=== PATIENT | male | born 1985 | race Caucasian/White ===

== ENCOUNTER 2019-02-10 02:56 | Inpatient (IN) | payer BC, OTHER ==
[2019-02-10] MEDS ORDERED: SODIUM CHLORIDE 1,000 ML IV ONE (03:11)
[2019-02-10] MEDS ORDERED: ONDANSETRON 4 MG/2 ML VIAL IVPB ONE (03:11)
--- NOTE | 2019-02-10 03:11 | PDOC ---
History of Present Illness - General Chief Complaint: Nausea/Vomiting Stated Complaint: N/V/ABD PAIN Time Seen by Provider: 02/10/19 03:10 History Source: Patient Exam Limitations: No Limitations - History of Present Illness Initial Comments: 02/10/19 03:15 This is a 33-year-old male long history of Crohn's disease was adequate affect treatment for Crohn's disease. Patient comes in complaining of nausea vomiting and abdominal pain for the last 2 days. Patient states she is unable to tolerate any liquids or solids. Patient denies any fevers or chills. Allergies: as per nursing notes Past Medical History: Crohn's disease Social history: Lives with family. No smoking. No alcohol. No illicit drugs. Surgical history: Abdominal surgery General: No fevers or chills, no weakness, no weight loss HEENT: No change in vision. No sore throat,. No ear pain CardioVascular: no chest discomfort. No shortness of breath Respiratory:No cough, or wheezing. Gastrointestinal: + nausea, +vomiting, no diarrhea or constipation, No rectal bleeding Genitourinary: No dysuria, hematuria, or frequency Musculoskeletal: No joint or muscle pain or swelling Neurologic: No headache, vertigo, dizziness or loss of consciousness Psychiatric: nor depression Skin: No rashes or easy bruising Endocrine: no increased thirst or abnormal weight change Allergic: no skin or latex allergy All other systems reviewed and normal Exam: General: Well-nourished well-developed individual, no acute distress HEENT: Throat: Normal, tonsils normal, no erythema or exudate Neck: Supple, no meningeal signs, no lymphadenopathy Eyes::Pupils equal reactive and round, extraocular motion intact Chest: Nontender to palpation Cardiac: S1-S2 normal, regular rate and rhythm, no murmurs rubs or gallops Respiratory: Lungs clear to auscultation bilateral Abdomen: Soft, slightly distended, decreased bowel sounds but present, he showed the chest to the right of the umbilicus, no guarding or rebound. Extremities: Warm, dry, no cyanosis, clubbing, or edema Skin: No rashes Neuro: Alert and oriented x3, CN II - XII intact, nonfocal exam with normal strength, normal sensation, normal reflexes, normal gait, Psych: Normal mood and affect Assessment and plan: This is a 33-year-old male with history of Crohn's who comes in complaining of 2 days nausea and vomiting. Workup was initiated including CBC, comp, lipase CAT scan was ordered to rule out obstruction Patient given IV fluids, pain meds and antiemetics. 02/10/19 06:57 Patient feels much better after fluids and antiemetics. As a normal white count and the rest of his labs are unremarkable. However given this history he is currently getting a CAT scan.. Transferred to Dr. tuyet nguyen at 7 AM. Case discussed in detail with oncoming Emergency Physician including history, physical exam and ancillary studies. Oncoming Emergency Physician has assumed care for the patient and will complete the evaluation and treatment. Patient is aware of the plan. Pt is clinically unchanged and stable. 02/10/19 06:58 Past History - Past Medical History Allergies/Adverse Reactions: Allergies Allergy/AdvReac Type Severity Reaction Status Date / Time No Known Allergies Allergy Unverified 02/10/19 02:57 Home Medications: Ambulatory Orders Infliximab [Remicade 100MG Vial] 100 mg IV WEEKLY 02/10/19 COPD: No GI Disorders: Yes (CROHNS) - Surgical History Abdominal Surgery: Yes (RESECTION) - Suicide/Smoking/Psychosocial Hx Smoking History: Never smoked *Physical Exam - Vital Signs Last Vital Signs Temp Pulse Resp BP Pulse Ox 98.3 F 66 18 140/82 100 02/10/19 03:00 02/10/19 03:00 02/10/19 03:00 02/10/19 03:00 02/10/19 03:00 ED Treatment Course - LABORATORY CBC & Chemistry Diagram: 02/10/19 03:15 02/10/19 03:15 *DC/Admit/Observation/Transfer Diagnosis at time of Disposition: Abdominal pain - Discharge Dispostion Condition at time of disposition: Stable - Referrals - Patient Instructions - Post Discharge Activity
[2019-02-10] MEDS ORDERED: morphine CARPU-JECT 4 MG/1 ML DISP.SYRIN IVPUSH ONE (03:15)
[2019-02-10] MEDS ORDERED: ONDANSETRON 4 MG/2 ML VIAL ONE ×2 (03:15→08:33)
[2019-02-10] MEDS ORDERED: morphine SULFATE 4 MG/ML VIAL ONE ×2 (03:18→08:32)
[2019-02-10 04:47] LABS: BASO % 0.3 % (0-2.0); EOS % 0.2 % (0-4.5); HEMATOCRIT 49.3 % (35.4-49); HEMOGLOBIN 16.3 GM/dL (11.7-16.9); LYMPH % 9.1 % (8-40); MCH 29.2 pg (25.7-33.7); MCHC 33.2 g/dl (32.0-35.9); MEAN CELL VOLUME 88.1 fl (80-96); MEAN PLT VOLUME 8.9 fl (7.5-11.1); MONO % 6.9 % (3.8-10.2); NEUT % 83.5 % (42.8-82.8); PLATELET COUNT 290 K/MM3 (134-434); RBC 5.59 M/mm3 (4.00-5.60); RDW 12.9 % (11.9-15.9); WHITE BLOOD COUNT 8.9 K/mm3 (4.0-10.0)
[2019-02-10 05:12] LABS: BILIRUBIN,TOTAL 0.9 mg/dL (0.2-1); BLOOD UREA NITROGEN 15.6 mg/dL (7-18); CALCIUM 9.4 mg/dL (8.5-10.1); CREATININE 1.3 mg/dL (0.55-1.3); POTASSIUM 4.3 mmol/L (3.5-5.1); TOT PROT 7.5 g/dl (6.4-8.2)
--- NOTE | 2019-02-10 07:30 | PDOC ---
*Physical Exam - Vital Signs Last Vital Signs Temp Pulse Resp BP Pulse Ox 98.1 F 55 L 16 152/67 100 02/10/19 06:57 02/10/19 06:57 02/10/19 06:57 02/10/19 06:57 02/10/19 06:57 ED Treatment Course - LABORATORY CBC & Chemistry Diagram: 02/10/19 03:15 02/10/19 03:15 - ADDITIONAL ORDERS Additional order review: Laboratory Results 02/10/19 03:15 Sodium 137 Potassium 4.3 Chloride 100 Carbon Dioxide 29 Anion Gap 8 BUN 15.6 Creatinine 1.3 Est GFR (CKD-EPI)AfAm 83.68 Est GFR (CKD-EPI)NonAf 72.20 Random Glucose 100 Calcium 9.4 Total Bilirubin 0.9 AST 21 ALT 28 Alkaline Phosphatase 55 Total Protein 7.5 Albumin 4.0 Lipase 146 02/10/19 03:15 RBC 5.59 MCV 88.1 MCHC 33.2 RDW 12.9 MPV 8.9 D Neutrophils % 83.5 H D Lymphocytes % 9.1 D Monocytes % 6.9 Eosinophils % 0.2 D Basophils % 0.3 - RADIOLOGY Radiology Studies Ordered: Category Date Time Status ABDOMEN & PELVIS CT WITH CONTR [CT] Stat CT Scan 02/10/19 03:11 Taken - Medications Given in the ED: ED Medications Discontinued Medications Generic Name Dose Route Start Last Admin Trade Name Freq PRN Reason Stop Dose Admin Sodium Chloride 1,000 mls @ 1,000 mls/hr 02/10/19 03:11 02/10/19 03:17 Normal Saline - IV 02/10/19 04:10 1,000 mls/hr .Q1H ONE Administration Morphine Sulfate 4 mg 02/10/19 03:15 02/10/19 03:21 Morphine Injection - IVPUSH 02/10/19 03:16 4 mg ONCE ONE Administration Ondansetron HCl 8 mg 02/10/19 03:11 02/10/19 03:17 Zofran Injection IVPB 02/10/19 03:12 8 mg ONCE ONE Administration *DC/Admit/Observation/Transfer Diagnosis at time of Disposition: SBO (small bowel obstruction) Abdominal pain Qualifiers: Abdominal location: generalized Qualified Code(s): R10.84 - Generalized abdominal pain Intestinal obstruction Qualifiers: Intestinal obstruction type: unspecified ileus Qualified Code(s): K56.7 - Ileus , unspecified - Discharge Dispostion Condition at time of disposition: Stable Decision to Admit order: Yes - Referrals - Patient Instructions - Post Discharge Activity
--- NOTE | 2019-02-10 08:03 | PDOC ---
History of Present Illness - General Chief Complaint: Nausea/Vomiting Stated Complaint: N/V/ABD PAIN Time Seen by Provider: 02/10/19 03:10 Past History - Past Medical History Allergies/Adverse Reactions: Allergies Allergy/AdvReac Type Severity Reaction Status Date / Time No Known Allergies Allergy Unverified 02/10/19 02:57 Home Medications: Ambulatory Orders Infliximab [Remicade 100MG Vial] 100 mg IV WEEKLY 02/10/19 COPD: No GI Disorders: Yes (CROHNS) - Surgical History Abdominal Surgery: Yes (RESECTION) - Suicide/Smoking/Psychosocial Hx Smoking History: Never smoked *Physical Exam - Vital Signs Last Vital Signs Temp Pulse Resp BP Pulse Ox 98.1 F 55 L 16 152/67 100 02/10/19 06:57 02/10/19 06:57 02/10/19 06:57 02/10/19 06:57 02/10/19 06:57 ED Treatment Course - LABORATORY CBC & Chemistry Diagram: 02/10/19 03:15 02/10/19 03:15 - ADDITIONAL ORDERS Additional order review: Laboratory Results 02/10/19 03:15 Sodium 137 Potassium 4.3 Chloride 100 Carbon Dioxide 29 Anion Gap 8 BUN 15.6 Creatinine 1.3 Est GFR (CKD-EPI)AfAm 83.68 Est GFR (CKD-EPI)NonAf 72.20 Random Glucose 100 Calcium 9.4 Total Bilirubin 0.9 AST 21 ALT 28 Alkaline Phosphatase 55 Total Protein 7.5 Albumin 4.0 Lipase 146 02/10/19 03:15 RBC 5.59 MCV 88.1 MCHC 33.2 RDW 12.9 MPV 8.9 D Neutrophils % 83.5 H D Lymphocytes % 9.1 D Monocytes % 6.9 Eosinophils % 0.2 D Basophils % 0.3 - RADIOLOGY Radiology Studies Ordered: Category Date Time Status ABDOMEN & PELVIS CT WITH CONTR [CT] Stat CT Scan 02/10/19 03:11 Taken - Medications Given in the ED: ED Medications Discontinued Medications Generic Name Dose Route Start Last Admin Trade Name Freq PRN Reason Stop Dose Admin Sodium Chloride 1,000 mls @ 1,000 mls/hr 02/10/19 03:11 02/10/19 03:17 Normal Saline - IV 02/10/19 04:10 1,000 mls/hr .Q1H ONE Administration Morphine Sulfate 4 mg 02/10/19 03:15 02/10/19 03:21 Morphine Injection - IVPUSH 02/10/19 03:16 4 mg ONCE ONE Administration Ondansetron HCl 8 mg 02/10/19 03:11 02/10/19 03:17 Zofran Injection IVPB 02/10/19 03:12 8 mg ONCE ONE Administration *DC/Admit/Observation/Transfer Diagnosis at time of Disposition: SBO (small bowel obstruction) Abdominal pain Qualifiers: Abdominal location: generalized Qualified Code(s): R10.84 - Generalized abdominal pain Intestinal obstruction Qualifiers: Intestinal obstruction type: unspecified ileus Qualified Code(s): K56.7 - Ileus , unspecified - Discharge Dispostion Condition at time of disposition: Stable - Referrals - Patient Instructions - Post Discharge Activity
--- NOTE | 2019-02-10 08:15 | PDOC ---
*Physical Exam - Vital Signs Last Vital Signs Temp Pulse Resp BP Pulse Ox 98.1 F 55 L 16 152/67 100 02/10/19 06:57 02/10/19 06:57 02/10/19 06:57 02/10/19 06:57 02/10/19 06:57 - Physical Exam General Appearance: Yes: Nourished, Appropriately Dressed, Moderate Distress HEENT: positive: AYDEE Neck: negative: Tender, Trachea midline, Normal Thyroid, Rigid, Supple, Carotid bruit, Decreased range of motion, Stridor, Lymphadenopathy (R), Lymphadenopathy (L), Rigidity, Tender lateral, Tender midline, Thyromegaly, Other Respiratory/Chest: positive: Lungs Clear, Normal Breath Sounds Cardiovascular: positive: Regular Rhythm Gastrointestinal/Abdominal: positive: Flat, Increased Bowel Sounds, Tenderness ( Right lower quadrant and midepigastrum), Other (midline scar post sb resection) . negative: Guarding, Rebound Male Genitalia: positive: normal genitalia Lymphatic: negative: Adenopathy Musculoskeletal: positive: Normal Inspection Extremity: positive: Normal Capillary Refill, Normal Inspection, Normal Range of Motion Integumentary: positive: Normal Color, Dry Neurologic: positive: Fully Oriented, Alert, Normal Mood/Affect ED Treatment Course - LABORATORY CBC & Chemistry Diagram: 02/10/19 03:15 02/10/19 03:15 - ADDITIONAL ORDERS Additional order review: Laboratory Results 02/10/19 03:15 Sodium 137 Potassium 4.3 Chloride 100 Carbon Dioxide 29 Anion Gap 8 BUN 15.6 Creatinine 1.3 Est GFR (CKD-EPI)AfAm 83.68 Est GFR (CKD-EPI)NonAf 72.20 Random Glucose 100 Calcium 9.4 Total Bilirubin 0.9 AST 21 ALT 28 Alkaline Phosphatase 55 Total Protein 7.5 Albumin 4.0 Lipase 146 02/10/19 03:15 RBC 5.59 MCV 88.1 MCHC 33.2 RDW 12.9 MPV 8.9 D Neutrophils % 83.5 H D Lymphocytes % 9.1 D Monocytes % 6.9 Eosinophils % 0.2 D Basophils % 0.3 - RADIOLOGY Radiograph Interpretation: Received call from Radiologist : SHIVA 02/10/19 08:21 - Medications Given in the ED: ED Medications Discontinued Medications Generic Name Dose Route Start Last Admin Trade Name Freq PRN Reason Stop Dose Admin Sodium Chloride 1,000 mls @ 1,000 mls/hr 02/10/19 03:11 02/10/19 03:17 Normal Saline - IV 02/10/19 04:10 1,000 mls/hr .Q1H ONE Administration Morphine Sulfate 4 mg 02/10/19 03:15 02/10/19 03:21 Morphine Injection - IVPUSH 02/10/19 03:16 4 mg ONCE ONE Administration Ondansetron HCl 8 mg 02/10/19 03:11 02/10/19 03:17 Zofran Injection IVPB 02/10/19 03:12 8 mg ONCE ONE Administration - Consult/PCP Time Called: 08:00 Case discussed with consulting physician: Kenzie Stuart Medical Decision Making - Medical Decision Making Discussed with admitting EQUIPMENT MONITOR PHOTOTYPESETTING, Surgical consult, Dr Montiel to be called 02/10/19 08:23 *DC/Admit/Observation/Transfer Diagnosis at time of Disposition: SBO (small bowel obstruction) Abdominal pain Qualifiers: Abdominal location: generalized Qualified Code(s): R10.84 - Generalized abdominal pain Intestinal obstruction Qualifiers: Intestinal obstruction type: unspecified ileus Qualified Code(s): K56.7 - Ileus , unspecified - Discharge Dispostion Condition at time of disposition: Stable Decision to Admit order: Yes - Referrals - Patient Instructions - Post Discharge Activity
[2019-02-10] MEDS ORDERED: ONDANSETRON 4 MG/2 ML VIAL IVPUSH ONE (08:29)
[2019-02-10] MEDS ORDERED: morphine CARPU-JECT 2 MG/1 ML DISP.SYRIN IVPUSH ONE (08:29)
[2019-02-10] MEDS ORDERED: SODIUM CHLORIDE 1,000 ML IV SCH (08:30)
--- NOTE | 2019-02-10 10:17 | HP ---
CHIEF COMPLAINT: Abdominal pain GI: Dr. Gualberto Mohr, [facility] [phone] GI surgeon: Dr. Mohan, [facility] HISTORY OF PRESENT ILLNESS: 33 year-old male with a PMH significant for Crohn's Disease (diagnosed age 26) s /p small bowel resection x 5 years ago. Patient presented to the ED for evaluation of abdominal pain, nausea and vomiting. Two days ago patient developed profound fatigue and vomiting. For the past 48 hours he has vomited repeatedly and has been unable to tolerate PO. He has pain in the right lower and right mid abdomen. Patient reports he has been symptom free for two years. He saw his GI specialist in December 2018 and was told everything was fine. 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[employer]; baseball instructor Smoking: never Alcohol: beer on weekends Drugs: no Family History: mother and father a&w; 4 step siblings a&w; daughter a&w Allergies No Known Allergies Allergy (Unverified 02/10/19 02:57) HOME MEDICATIONS: Home Medications Medication Instructions Recorded Infliximab [Remicade 100MG Vial] 100 mg IV WEEKLY 02/10/19 REVIEW OF SYSTEMS CONSTITUTIONAL: Absent: fever, chills, diaphoresis, generalized weakness, malaise, loss of appetite, weight change HEENT: Absent: rhinorrhea, nasal congestion, throat pain, throat swelling, difficulty swallowing, mouth swelling, ear pain, eye pain, visual changes CARDIOVASCULAR: Absent: chest pain, syncope, palpitations, irregular heart rate, lightheadedness , peripheral edema RESPIRATORY: Absent: cough, shortness of breath, dyspnea with exertion, orthopnea, wheezing, stridor, hemoptysis GASTROINTESTINAL: +nausea, vomiting, abdominal pain Absent: abdominal pain, abdominal distension, nausea, vomiting, diarrhea, constipation, melena, hematochezia GENITOURINARY: Absent: dysuria, frequency, urgency, hesitancy, hematuria, flank pain, genital pain MUSCULOSKELETAL: Absent: myalgia, arthralgia, joint swelling, back pain, neck pain SKIN: Absent: rash, itching, pallor HEMATOLOGIC/IMMUNOLOGIC: Absent: easy bleeding, easy bruising, lymphadenopathy, frequent infections ENDOCRINE: Absent: unexplained weight gain, unexplained weight loss, heat intolerance, cold intolerance NEUROLOGIC: Absent: headache, focal weakness or paresthesias, dizziness, unsteady gait, seizure, mental status changes, bladder or bowel incontinence PSYCHIATRIC: Absent: anxiety, depression, suicidal or homicidal ideation, hallucinations. PHYSICAL EXAMINATION Vital Signs - 24 hr 02/10/19 02/10/19 02/10/19 03:00 06:57 08:14 Temperature 98.3 F 98.1 F 99.2 F Pulse Rate 66 Pulse Rate [ 55 L 86 Radial] Respiratory 18 16 16 Rate Blood Pressure 140/82 Blood Pressure 152/67 129/76 [Arm] O2 Sat by Pulse 100 100 98 Oximetry (%) GENERAL: Awake, alert, and fully oriented, in no acute distress. LUNGS: Breath sounds equal, clear to auscultation bilaterally. No wheezes, and no crackles. No accessory muscle use. HEART: Regular rate and rhythm, normal S1 and S2 without murmur, rub or gallop. ABDOMEN: Large healed surgical scar; soft; RLQ and RMQ tenderness; hypoactive bowel sounds MUSCULOSKELETAL: Normal range of motion at all joints. No bony deformities or tenderness. No CVA tenderness. UPPER EXTREMITIES: 2+ pulses, warm, well-perfused. No cyanosis. No clubbing. No peripheral edema. LOWER EXTREMITIES: 2+ pulses, warm, well-perfused. No calf tenderness. No peripheral edema. NEUROLOGICAL: Cranial nerves II-XII intact. Normal speech. Normal gait. PSYCHIATRIC: Cooperative. Good eye contact. Appropriate mood and affect. SKIN: Warm, dry, normal turgor, no rashes or lesions noted, normal capillary refill. Laboratory Results - last 24 hr 02/10/19 02/10/19 03:15 03:15 WBC 8.9 RBC 5.59 Hgb 16.3 Hct 49.3 H MCV 88.1 MCH 29.2 MCHC 33.2 RDW 12.9 Plt Count 290 MPV 8.9 D Absolute Neuts (auto) 7.4 Neutrophils % 83.5 H D Lymphocytes % 9.1 D Monocytes % 6.9 Eosinophils % 0.2 D Basophils % 0.3 Nucleated RBC % 0 Sodium 137 Potassium 4.3 Chloride 100 Carbon Dioxide 29 Anion Gap 8 BUN 15.6 Creatinine 1.3 Est GFR (CKD-EPI)AfAm 83.68 Est GFR (CKD-EPI)NonAf 72.20 Random Glucose 100 Calcium 9.4 Total Bilirubin 0.9 AST 21 ALT 28 Alkaline Phosphatase 55 Total Protein 7.5 Albumin 4.0 Lipase 146 ASSESSMENT/PLAN 33 year-old male with a PMH significant for Crohn's Disease (diagnosed age 26) s /p small bowel resection x 5 years ago. Admitted for SBO. SBO --02/10 CTAP: SBO with loops up to 4cm; fecalization; transition at small bowel anastamosis --02/10 FUA: no sign of ileus or obstruction --NPO --IV fluids --surgical consult Crohn's disease --on remicade --call placed to GI Dr. Mohr to discuss management; spoke with EMERGENCY TELECOMMUNICATIONS DISPATCHER Cris Cruz; if patient needs surgery or develops complications the IBD team will accept the patient for transfer; call the [facility], ask for the IBD team and speak to the fellow five piece expansion maker hand DVT prophylaxis: TEDs, oob, ambulation Dispo: continues to require inpatient care. Full code. Visit type - Emergency Visit Emergency Visit: Yes ED Registration Date: 02/10/19 Care time: The patient presented to the Emergency Department on the above date and was hospitalized for further evaluation of their emergent condition. - New Patient This patient is new to me today: Yes Date on this admission: 02/10/19 - Critical Care Critical Care patient: No
[2019-02-10 10:27] VITALS: BMI 27.3
[2019-02-10] MEDS ORDERED: ACETAMINOPHEN 1000 MG/100 ML VIAL (NON FORMULARY) IVPB PRN (10:55)
[2019-02-10] MEDS ORDERED: DEXTROSE 5%-NORMAL SALINE 1,000 ML IV SCH (11:00)
[2019-02-10 12:51] LABS: ACTIVATED PTT 30.1 SECONDS (25.2-36.5)
[2019-02-10 12:55] LABS: INR 1.45 (0.82-1.09); PROTHROMBIN TIME (PATIENT) 16.1 SEC (10.2-13.0)
--- NOTE | 2019-02-10 23:44 | CONSULT ---
- Consultation REQUESTING PROVIDER: Narciso MINERAL INDUSTRY TEACHER CONSULT REQUEST: We have been asked to surgically evaluate this patient for nausea/vomiting/abdominal pain PCP:Kenzie Stuart HISTORY OF PRESENT ILLNESS:33 y/o W/male w/known Crohns disease presented w/ above complaints which started 24 hours earlier; he has had this before and it usually resolves on its own; it was worse this time and he came to the ED for evaluation; after # hours in the ED and a dx. w/u and tx. he was feeling better and passing large amounts of flatus; he has a h/o SBR for Crohns disease at [facility] [place] [facility] # years ago; he has NOC today. PMHx: Crohns PSHx: as above Home Medications Medication Instructions Recorded Infliximab [Remicade 100MG Vial] 100 mg IV WEEKLY 02/10/19 Allergies Allergy/AdvReac Type Severity Reaction Status Date / Time No Known Allergies Allergy Unverified 02/10/19 02:57 REVIEW OF SYSTEMS: CONSTITUTIONAL: Absent: fever, chills, diaphoresis, generalized weakness, malaise, loss of appetite, weight change CARDIOVASCULAR: Absent: chest pain, syncope, palpitations, irregular heart rate, lightheadedness , peripheral edema RESPIRATORY: Absent: cough, shortness of breath, dyspnea with exertion, wheezing, stridor, hemoptysis GASTROINTESTINAL: Present: abdominal pain, abdominal distension, nausea, vomiting, diarrhea, constipation, Absent: melena, hematochezia GENITOURINARY: Absent: dysuria, frequency, urgency, hesitancy, hematuria, flank pain, genital pain MUSCULOSKELETAL: Absent: myalgia, arthralgia, joint swelling, back pain, neck pain SKIN: Absent: rash, itching, pallor HEMATOLOGIC/IMMUNOLOGIC: Absent: easy bleeding, easy bruising, lymphadenopathy NEUROLOGIC: Absent: headache, focal weakness, paresthesias, dizziness, unsteady gait, seizure, mental status changes, bladder or bowel incontinence PSYCHIATRIC: Absent: anxiety, depression, suicidal or homicidal ideation, hallucinations. PHYSICAL EXAM: GENERAL: Awake, alert, and fully oriented, in no acute distress. HEAD: Normal with no signs of trauma. EYES: sclera anicteric, conjunctiva clear. NECK: Normal ROM, supple without lymphadenopathy, JVD, or masses. ABDOMEN: Soft, nontender, not distended, normoactive bowel sounds, no guarding, no rebound, no masses. No organomegaly. Slight tympany; healed lower abdominal scar w/o hernia. MUSCULOSKELETAL: Normal ROM at all joints. No bony deformities or tenderness. No CVA tenderness. UPPER EXTREMITIES: 2+ pulses, warm, well-perfused. No cyanosis. Cap refill <2 seconds. No peripheral edema. LOWER EXTREMITIES: 2+ pulses, warm, well-perfused. No calf tenderness. No peripheral edema. NEUROLOGICAL: Normal speech, gait not observed. PSYCH: Cooperative. Good eye contact. Appropriate mood and affect. SKIN: Warm, dry, normal turgor, no rashes or lesions noted. Vital Signs Temperature 97.5 F L 02/10/19 22:00 Pulse Rate 54 L 02/10/19 22:00 Respiratory Rate 18 02/10/19 22:00 Blood Pressure 114/59 L 02/10/19 22:00 O2 Sat by Pulse Oximetry (%) 98 02/10/19 20:11 Lab Results WBC 8.9 K/mm3 (4.0-10.0) 02/10/19 03:15 RBC 5.59 M/mm3 (4.00-5.60) 02/10/19 03:15 Hgb 16.3 GM/dL (11.7-16.9) 02/10/19 03:15 Hct 49.3 % (35.4-49) H 02/10/19 03:15 MCV 88.1 fl (80-96) 02/10/19 03:15 MCHC 33.2 g/dl (32.0-35.9) 02/10/19 03:15 RDW 12.9 % (11.9-15.9) 02/10/19 03:15 Plt Count 290 K/MM3 (134-434) 02/10/19 03:15 Sodium 137 mmol/L (136-145) 02/10/19 03:15 Potassium 4.3 mmol/L (3.5-5.1) 02/10/19 03:15 Chloride 100 mmol/L (98-107) 02/10/19 03:15 Carbon Dioxide 29 mmol/L (21-32) 02/10/19 03:15 Anion Gap 8 MMOL/L (8-16) 02/10/19 03:15 BUN 15.6 mg/dL (7-18) 02/10/19 03:15 Creatinine 1.3 mg/dL (0.55-1.3) 02/10/19 03:15 Random Glucose 100 mg/dL (74-106) 02/10/19 03:15 Calcium 9.4 mg/dL (8.5-10.1) 02/10/19 03:15 Blood Type A POSITIVE 02/10/19 11:31 Antibody Screen Negative 02/10/19 11:31 INR 1.45 (0.82-1.09) H 02/10/19 12:20 CT scan a/p reviewed; AXR's reviewed IMP: sbo resolving PLAN: IVF/trial of clear liquids and advance as tolerated; will f/u as needed. Cruz Montiel MD FACS
[2019-02-11] MEDS ORDERED: HEPARIN NA (PORCINE) 5,000 UNITS/ML 1ML VIAL SQ SCH (02:00)
--- NOTE | 2019-02-11 07:45 | PN ---
Progress Note, Physician Chief Complaint: no complaints offered History of Present Illness: 33 year-old male with a PMH significant for Crohn's Disease (diagnosed age 26) s /p small bowel resection x 5 years ago. Patient presented to the ED for evaluation of abdominal pain, nausea and vomiting. Two days ago patient developed profound fatigue and vomiting. For the past 48 hours he has vomited repeatedly and has been unable to tolerate PO. He has pain in the right lower and right mid abdomen. Patient reports he has been symptom free for two years. He saw his GI specialist in December 2018 and was told everything was fine. ER course was notable for: (1) afebrile, no leukocytosis (2) CTAP: SBO with loops up to 4cm; fecalization; transition at small bowel anastamosis - Current Medication List Current Medications: Active Medications Acetaminophen (Ofirmev Injection -) 1,000 mg IVPB Q6H PRN PRN Reason: PAIN LEVEL 1-5 Sodium Chloride (Normal Saline -) 1,000 mls @ 0 mls/hr IV ASDIR CAMI Last Admin: 02/10/19 08:37 Dose: 1,000 mls/hr Dextrose/Sodium Chloride (D5-Ns -) 1,000 mls @ 125 mls/hr IV ASDIR CAMI Last Admin: 02/10/19 11:47 Dose: 125 mls/hr - Objective Vital Signs: Vital Signs Temperature 97.7 F 02/11/19 06:00 Pulse Rate 52 L 02/11/19 06:00 Respiratory Rate 18 02/11/19 06:00 Blood Pressure 111/65 02/11/19 06:00 O2 Sat by Pulse Oximetry (%) 98 02/11/19 06:00 Constitutional: Yes: Well Nourished, No Distress, Calm Eyes: Yes: WNL, Conjunctiva Clear, EOM Intact HENT: Yes: WNL, Atraumatic, Normocephalic Neck: Yes: WNL, Supple, Trachea Midline Cardiovascular: Yes: WNL, Regular Rate and Rhythm Respiratory: Yes: WNL, Regular, CTA Bilaterally Gastrointestinal: Yes: WNL, Normal Bowel Sounds, Soft ...Rectal Exam: Yes: Deferred Genitourinary: Yes: WNL Breast(s): Yes: WNL Musculoskeletal: Yes: WNL Extremities: Yes: WNL Edema: No Integumentary: Yes: WNL Neurological: Yes: WNL, Alert, Oriented ...Motor Strength: WNL Psychiatric: Yes: WNL Labs: INR, PTT INR 1.45 (0.82-1.09) H 02/10/19 12:20 - ....Imaging X-ray: Image Reviewed (SBO resolving) Problem List - Problems (1) CD (Crohn's disease) Code(s): K50.90 - CROHN'S DISEASE, UNSPECIFIED, WITHOUT COMPLICATIONS (2) Prophylactic measure Assessment/Plan: FEN advance diet as tolerated monitor electrolytes IVF dc'd DVT heparin sq Dispo maintain as inpatient full code discharge planning Code(s): Z29.9 - ENCOUNTER FOR PROPHYLACTIC MEASURES, UNSPECIFIED (3) S/P small bowel resection Assessment/Plan: s/p resection 5 years ago Code(s): Z90.49 - ACQUIRED ABSENCE OF OTHER SPECIFIED PARTS OF DIGESTIVE TRACT (4) SBO (small bowel obstruction) Assessment/Plan: --02/10 CTAP: SBO with loops up to 4cm; fecalization; transition at small bowel anastamosis --02/10 FUA: no sign of ileus or obstruction -seen by surgery-Dr Montiel -tolerating diet BM overnight -will observed after full meals as assess for discharge Code(s): K56.609 - UNSP INTESTNL OBST, UNSP TO PARTIAL VERSUS COMPLETE OBST Visit type - Emergency Visit Emergency Visit: Yes ED Registration Date: 02/10/19 Care time: The patient presented to the Emergency Department on the above date and was hospitalized for further evaluation of their emergent condition. - New Patient This patient is new to me today: Yes Date on this admission: 02/11/19 - Critical Care Critical Care patient: No - Discharge Referral Referred to [facility] No
[2019-02-11 08:26] LABS: RBC 4.64 M/mm3 (4.00-5.60)
[2019-02-11 08:33] LABS: ALBUMIN 3.1 g/dl (3.4-5.0); CALCIUM 8.4 mg/dl (8.5-10); CREATININE 1.2 mg/dl (0.55-1.3); MAGNESIUM 1.8 mg/dL (1.8-2.4); POTASSIUM 3.9 mmol/L (3.5-5.1); TOT PROT 5.8 g/dl (6.4-8.2)
[2019-02-11 08:34] LABS: HEMOGLOBIN 13.6 GM/dl (11.7-16.9); MCH 29.4 pg (25.7-33.7); MCHC 33.3 g/dl (32.0-35.9); MEAN CELL VOLUME 88.3 fl (80-96); MEAN PLT VOLUME 8.4 fl (7.5-11.1); PLATELET COUNT 214 K/MM3 (134-434); RDW 12.1 % (11.9-15.9); WHITE BLOOD COUNT 2.7 K/mm3 (4.0-10.8)
[2019-02-11 09:34] LABS: PLATELET ESTIMATE ADEQUATE
[2019-02-11 10:34] VITALS: BP 113/59; PULSE 108; TEMP 98.2
--- NOTE | 2019-02-11 10:36 | DS ---
Physical Exam: SUBJECTIVE: Patient seen and examined 33 year-old male with a PMH significant for Crohn's Disease (diagnosed age 26) s /p small bowel resection x 5 years ago. Patient presented to the ED for evaluation of abdominal pain, nausea and vomiting. Two days ago patient developed profound fatigue and vomiting. For the past 48 hours he has vomited repeatedly and has been unable to tolerate PO. He has pain in the right lower and right mid abdomen. Patient reports he has been symptom free for two years. He saw his GI specialist in December 2018 and was told everything was fine. No complaits offred. Tolerating diet and passing flatus/BM. Medically cleared for discharged to home OBJECTIVE: Vital Signs Period Temp Pulse Resp BP Sys/Chavarria Pulse Ox Last 24 Hr 97.5 F-98.0 F 51-55 16-19 105-117/51-65 97-99 PHYSICAL EXAM Constitutional: Yes: Well Nourished, No Distress, Calm Eyes: Yes: WNL, Conjunctiva Clear, EOM Intact HENT: Yes: WNL, Atraumatic, Normocephalic Neck: Yes: WNL, Supple, Trachea Midline Cardiovascular: Yes: WNL, Regular Rate and Rhythm Respiratory: Yes: WNL, Regular, CTA Bilaterally Gastrointestinal: Yes: WNL, Normal Bowel Sounds, Soft ...Rectal Exam: Yes: Deferred Genitourinary: Yes: WNL Breast(s): Yes: WNL Musculoskeletal: Yes: WNL Extremities: Yes: WNL Edema: No Integumentary: Yes: WNL Neurological: Yes: WNL, Alert, Oriented ...Motor Strength: WNL Psychiatric: Yes: WNL LABS Laboratory Results - last 24 hr 02/10/19 02/10/19 02/10/19 11:31 11:31 11:31 WBC RBC Hgb Hct MCV MCH MCHC RDW Plt Count MPV Absolute Neuts (auto) Neutrophils % Neutrophils % (Manual) Lymphocytes % Lymphocytes % (Manual) Monocytes % (Manual) Platelet Estimate PT with INR INR PTT (Actin FS) Sodium Potassium Chloride Carbon Dioxide Anion Gap BUN Creatinine Est GFR (CKD-EPI)AfAm Est GFR (CKD-EPI)NonAf Random Glucose Lactic Acid 0.9 Calcium Magnesium Total Bilirubin AST ALT Alkaline Phosphatase Total Protein Albumin Urine Color Urine Appearance Urine pH Urine Protein Urine Glucose (UA) Urine Ketones Urine Blood Urine Nitrite Urine Bilirubin Urine Urobilinogen Ur Leukocyte Esterase Blood Type A POSITIVE A POSITIVE Antibody Screen Negative 02/10/19 02/10/19 02/11/19 12:20 12:40 07:28 WBC 2.7 L RBC 4.64 Hgb 13.6 Hct 41.0 MCV 88.3 MCH 29.4 MCHC 33.3 RDW 12.1 Plt Count 214 MPV 8.4 Absolute Neuts (auto) 1.4 Neutrophils % No Result Required. Neutrophils % (Manual) 47.0 Lymphocytes % No Result Required. Lymphocytes % (Manual) 45.0 H Monocytes % (Manual) 8 Platelet Estimate Adequate PT with INR 16.1 H INR 1.45 H PTT (Actin FS) 30.1 Sodium Potassium Chloride Carbon Dioxide Anion Gap BUN Creatinine Est GFR (CKD-EPI)AfAm Est GFR (CKD-EPI)NonAf Random Glucose Lactic Acid Calcium Magnesium Total Bilirubin AST ALT Alkaline Phosphatase Total Protein Albumin Urine Color Yellow Urine Appearance Clear Urine pH 7.0 Urine Protein Negative Urine Glucose (UA) Negative Urine Ketones 1+ H Urine Blood Negative Urine Nitrite Negative Urine Bilirubin Negative Urine Urobilinogen 0.2 Ur Leukocyte Esterase Negative Blood Type Antibody Screen 02/11/19 07:28 WBC RBC Hgb Hct MCV MCH MCHC RDW Plt Count MPV Absolute Neuts (auto) Neutrophils % Neutrophils % (Manual) Lymphocytes % Lymphocytes % (Manual) Monocytes % (Manual) Platelet Estimate PT with INR INR PTT (Actin FS) Sodium 139 Potassium 3.9 Chloride 108 H Carbon Dioxide 28 Anion Gap 3 L BUN 12.0 Creatinine 1.2 Est GFR (CKD-EPI)AfAm 92.18 Est GFR (CKD-EPI)NonAf 79.53 Random Glucose 101 Lactic Acid Calcium 8.4 L Magnesium 1.8 Total Bilirubin 1.0 AST 11 L ALT 17 Alkaline Phosphatase 35 L Total Protein 5.8 L Albumin 3.1 L Urine Color Urine Appearance Urine pH Urine Protein Urine Glucose (UA) Urine Ketones Urine Blood Urine Nitrite Urine Bilirubin Urine Urobilinogen Ur Leukocyte Esterase Blood Type Antibody Screen HOSPITAL COURSE: Date of Admission:02/10/19 Date of Discharge: 02/11/19 - ....Imaging X-ray: Image Reviewed (SBO resolving) CD (Crohn's disease) stable S/P small bowel resection s/p resection 5 years ago SBO (small bowel obstruction) --02/10 CTAP: SBO with loops up to 4cm; fecalization; transition at small bowel anastamosis --02/10 FUA: no sign of ileus or obstruction -seen by surgery-Dr Montiel -tolerating diet, BM overnight and passing flatus Medically cleared for discharge to home Minutes to complete discharge: 30 Discharge Summary Reason For Visit: SMALL BOWEL OBSTRUCTION Current Active Problems Abdominal pain (Acute) CD (Crohn's disease) (Acute) Intestinal obstruction (Acute) Prophylactic measure (Acute) S/P small bowel resection (Acute) SBO (small bowel obstruction) (Acute) Hospital Course: HOSPITAL COURSE: Date of Admission:02/10/19 Date of Discharge: 02/11/19 - ....Imaging X-ray: Image Reviewed (SBO resolving) CD (Crohn's disease) stable S/P small bowel resection s/p resection 5 years ago SBO (small bowel obstruction) --02/10 CTAP: SBO with loops up to 4cm; fecalization; transition at small bowel anastamosis --02/10 FUA: no sign of ileus or obstruction -seen by surgery-Dr Montiel -tolerating diet, BM overnight and passing flatus Medically cleared for discharge to home Condition: Improved - Instructions Diet, Activity, Other Instructions: You were admitted with small bowel obstruction secondary to your Chrons Disease. You were conservatively managed with bowel rest and the obstruction resulted. You are tolerating full diet and passing gas and bowel movements. Continue your remicade at directed. Keep you diet bland for the nexrt week increasing as tolerating. If abdominal pain, nausea, vomiting return come back to the ED. - Home Medications Comprehensive Discharge Medication List: Ambulatory Orders Infliximab [Remicade Infusion -] 100 mg IV WEEKLY 02/10/19 Problem List - Problems (1) CD (Crohn's disease) Code(s): K50.90 - CROHN'S DISEASE, UNSPECIFIED, WITHOUT COMPLICATIONS (2) Prophylactic measure Code(s): Z29.9 - ENCOUNTER FOR PROPHYLACTIC MEASURES, UNSPECIFIED (3) S/P small bowel resection Code(s): Z90.49 - ACQUIRED ABSENCE OF OTHER SPECIFIED PARTS OF DIGESTIVE TRACT (4) SBO (small bowel obstruction) Code(s): K56.609 - UNSP INTESTNL OBST, UNSP TO PARTIAL VERSUS COMPLETE OBST This patient is new to me today: Yes Date on this admission: 02/11/19 Emergency Visit: Yes ED Registration Date: 02/10/19 Care time: The patient presented to the Emergency Department on the above date and was hospitalized for further evaluation of their emergent condition. Critical Care patient: No - Discharge Referral Referred to [facility].: No
== END 2019-02-11 12:05 | disposition home or self-care (01) | DRG 389 ==
LOC: FER 02:56 → FM/S 08:25
PROVIDERS: ADMIT Internal Medicine; ATTEND Nurse Practitioner Acute Care
DX: K56.699 Other intestinal obstruction unspecified as to partial versus complete obstruction (principal); K50.90 Crohn's disease, unspecified, without complications
CPT/HCPCS: 36415; 74019-TC-FY; 74177-TC; 80053; 81003; 83605; 83690; 83735; 85025; 85610; 85730; 86850; 86900; 86901; 87040; 87086; 99284-25; J7030

== ENCOUNTER 2020-10-29 11:14 | Emergency (ER) | payer OTHER, BC ==
[2020-10-29 11:27] VITALS: BP 151/74; PULSE 84; TEMP 98; BMI 29.8
== END 2020-10-29 12:35 | disposition home or self-care (01) ==
LOC: FER 11:14
DX: S69.92XA Unspecified injury of left wrist, hand and finger(s), initial encounter (principal); T59.3X3A Toxic effect of lacrimogenic gas, assault, initial encounter
CPT/HCPCS: 73130-TC-LT-FY; 99283-25

== ENCOUNTER 2021-07-14 10:00 | Emergency (ER) | payer OTHER ==
[2021-07-14 10:10] VITALS: BP 112/99; PULSE 98; TEMP 98.6; BMI 29.2
== END 2021-07-14 12:05 | disposition home or self-care (01) ==
LOC: FER 10:00
DX: S59.902A Unspecified injury of left elbow, initial encounter (principal); X50.0XXA Overexertion from strenuous movement or load, initial encounter
CPT/HCPCS: 73070-TC-LT-FY; 99283-25

== ENCOUNTER 2022-01-31 11:33 | Emergency (ER) | payer OTHER ==
[2022-01-31 11:59] VITALS: BP 127/73; PULSE 88; RESP 15; TEMP 98.7; BMI 28.5
== END 2022-01-31 12:01 | disposition home or self-care (01) ==
LOC: FER 11:33
DX: Z77.21 Contact with and (suspected) exposure to potentially hazardous body fluids (principal)
CPT/HCPCS: 99281-25

== ENCOUNTER 2022-06-26 14:18 | Emergency (ER) | payer OTHER ==
[2022-06-26 14:36] VITALS: BP 149/84; PULSE 98; RESP 18; TEMP 98.7; BMI 28.0
[2022-06-26] MEDS ORDERED: ACETAMINOPHEN 325 MG TABLET (FP) PO ONE (14:52)
[2022-06-26] MEDS ORDERED: ACETAMINOPHEN 325 MG TABLET (FP) ONE (14:56)
== END 2022-06-26 15:25 | disposition home or self-care (01) ==
LOC: FER 14:18
DX: S80.211A Abrasion, right knee, initial encounter (principal); S80.212A Abrasion, left knee, initial encounter; M25.561 Pain in right knee; Y35.811A Legal intervention involving manhandling, law enforcement official injured, initial encounter; Y93.02 Activity, running
CPT/HCPCS: 99283-25

== ENCOUNTER 2022-09-04 15:02 | Emergency (ER) | payer OTHER ==
[2022-09-04 15:16] VITALS: BP 122/83; PULSE 93; RESP 16; TEMP 98.4; BMI 27.3
== END 2022-09-04 15:43 | disposition home or self-care (01) ==
LOC: FER 15:02
DX: S63.502A Unspecified sprain of left wrist, initial encounter (principal); S83.92XA Sprain of unspecified site of left knee, initial encounter; Y99.8 Other external cause status
CPT/HCPCS: 99282-25

== ENCOUNTER 2024-03-21 11:37 | Emergency (ER) | payer OTHER, BC ==
[2024-03-21 12:02] VITALS: BP 129/67; PULSE 73; RESP 20; TEMP 98.2; BMI 27.3
[2024-03-21] MEDS: BACITRACIN 0.9 GM PACKET TP ONE (12:28)
== END 2024-03-21 12:28 | disposition home or self-care (01) ==
LOC: FER 11:37
DX: S86.912A Strain of unspecified muscle(s) and tendon(s) at lower leg level, left leg, initial encounter (principal); S60.511A Abrasion of right hand, initial encounter; S60.512A Abrasion of left hand, initial encounter; X58.XXXA Exposure to other specified factors, initial encounter
CPT/HCPCS: 99283-25